=== PATIENT | female | born 1945 | race Hispanic/Latino ===

== ENCOUNTER 2019-01-18 12:12 | Emergency (ER) | payer MEDICARE ==
[2019-01-18] MEDS ORDERED: OCTYL 2-CYANOACRYLATE 1 EACH TP ONE (12:40)
== END 2019-01-18 13:48 | disposition home or self-care (01) ==
LOC: EDH 12:12
DX: S61.012A Laceration without foreign body of left thumb without damage to nail, initial encounter (principal); I10 Essential (primary) hypertension; Z90.49 Acquired absence of other specified parts of digestive tract; Z90.710 Acquired absence of both cervix and uterus; W26.0XXA Contact with knife, initial encounter; Y93.89 Activity, other specified; Y92.098 Other place in other non-institutional residence as the place of occurrence of the external cause; Y99.8 Other external cause status
CPT/HCPCS: 12001

== ENCOUNTER 2022-01-03 07:08 | Observation (INO) | payer MEDICARE ==
[2021-12-30 14:43] LABS: BASOPHILS % (AUTO) 0.6 % (0.0-5.0); EOSINOPHILS % (AUTO) 1.7 % (0.0-8.0); HEMATOCRIT 44.2 % (36-48); LYMPHOCYTES % (AUTO) 29.4 % (21.0-51.0); MEAN CORPUSCULAR HEMOGLOBIN 30.9 pg (27.0-33.0); MEAN CORPUSCULAR HGB CONC 34.6 g/dL (32.0-36.0); MEAN CORPUSCULAR VOLUME 89.3 fL (79-99); NEUTROPHILS % (AUTO) 60.9 % (40.0-77.0); PLATELET COUNT (AUTO) 302 K/uL (130-400); RED BLOOD CELL COUNT(AUTO) 4.95 MIL/uL (4.00-5.50); WHITE BLOOD COUNT (AUTO) 10.1 K/uL (4.8-10.8)
[2021-12-30 14:57] LABS: CREATININE 0.6 mg/dL (0.5-1.5); INR 0.93 (0.85-1.15); POTASSIUM 3.5 mmol/L (3.5-5.1); PROTHROMBIN TIME 9.8 SEC (9.6-11.6)
[2021-12-30 14:59] LABS: PARTIAL THROMBOPLASTIN TIME 28.1 SEC (26.3-35.5)
[2022-01-02 12:23] VITALS: BP 140/100
[2022-01-03] VITALS (24 sets, daily range): BP systolic 125–195; BP diastolic 61–99
[~2022-01-03] VITALS: Ht 152.4 cm; Wt 77.1 kg
[~2022-01-03 07:08] MED LIST: AMLO2.5T4 PO; LOSA100T58 PO
[2022-01-03] MEDS: LACTATED RINGERS 1000ML 1,000 ML IV SCH ×2 (07:48→16:45)
[2022-01-03] MEDS ORDERED: CEFAZOLIN SODIUM 1 GM VIAL IVP ONE (08:00)
[2022-01-03] MEDS ORDERED: TRANEXAMIC ACID 1000MG/10ML ONE (08:55)
[2022-01-03] MEDS ORDERED: ROPIVACAINE 0.5% 5MG/ML 30ML IJ ONE (10:06)
[2022-01-03] MEDS ORDERED: PROPOFOL 10 MG/ML 20ML VIAL IV ONE (10:56)
[2022-01-03] MEDS ORDERED: LIDOCAINE PF 100MG/5ML (2%) SYRINGE 5ML ONE (11:00)
[2022-01-03] MEDS ORDERED: NEOSTIGMINE 5MG/5ML SYR IV ONE (11:00)
[2022-01-03] MEDS ORDERED: ONDANSETRON 4MG INJ ONE (11:00)
[2022-01-03] MEDS ORDERED: FENTANYL CITRATE PF 50 MCG/1 ML 2ML VIAL ONE (11:01)
[2022-01-03] MEDS ORDERED: ROCURONIUM 10MG/1ML SYR 10 MG/ML ML ONE (11:01)
[2022-01-03] MEDS ORDERED: MIDAZOLAM HCL 1 MG/ML 2ML VIAL ONE (11:02)
[2022-01-03] MEDS ORDERED: GLYCOPYRROLATE 1 MG/5 ML SYRINGE ONE (11:06)
[2022-01-03] MEDS ORDERED: CEFAZOLIN SODIUM 2 GM VIAL IV ONE (12:02)
[2022-01-03] MEDS ORDERED: DEXAMETHASONE SOD PHOSPHATE 10MG/ML 1ML VIAL ONE (12:07)
[2022-01-03] MEDS: ACETAMINOPHEN 500 MG TABLET PO SCH ×2 (14:00→21:37)
[2022-01-03] MEDS ORDERED: HYDROCODONE/ACETAMINOPHEN 10/325 MG TAB PO PRN (14:00)
[2022-01-03] MEDS ORDERED: ONDANSETRON 4MG INJ IVP PRN (14:00)
[2022-01-03] MEDS ORDERED: KETOROLAC 15MG/ML VIAL (15MG/ML) IV PRN (14:00)
[2022-01-03] MEDS ORDERED: FERROUS FUMARATE 324 MG TABLET PO PRN (14:00)
[2022-01-03] MEDS ORDERED: MORPHINE 4 MG SYG IVP PRN (14:00)
[2022-01-03] MEDS ORDERED: MEPERIDINE-PF 25 MG/ML SYG ONE ×2 (14:13→14:28)
[2022-01-03] MEDS ORDERED: HYDRALAZINE 20MG/ML VIAL ONE (14:21)
[2022-01-03] MEDS: 0.9%NACL 1000ML 1,000 ML IV SCH (16:00)
[2022-01-03] MEDS: CEFAZOLIN SODIUM 1 GM VIAL IVP SCH (18:16)
[2022-01-03] MEDS: TRAMADOL HCL 50 MG TABLET PO SCH (18:16)
[2022-01-03] MEDS: ASPIRIN 81 MG EC TAB PO SCH (21:36)
[2022-01-03] MEDS: FAMOTIDINE 20MG TAB PO SCH (21:36)
[2022-01-04] VITALS (7 sets, daily range): BP systolic 115–167; BP diastolic 66–85
[2022-01-04] MEDS: TRAMADOL HCL 50 MG TABLET PO SCH ×5 (00:45→23:56)
[2022-01-04] MEDS: CEFAZOLIN SODIUM 1 GM VIAL IVP SCH (03:55)
[2022-01-04 05:16] LABS: HEMATOCRIT 39.9 % (36-48); MEAN CORPUSCULAR HEMOGLOBIN 30.9 pg (27.0-33.0); MEAN CORPUSCULAR HGB CONC 35.1 g/dL (32.0-36.0); MEAN CORPUSCULAR VOLUME 88.1 fL (79-99); RED BLOOD CELL COUNT(AUTO) 4.53 MIL/uL (4.00-5.50); RED CELL DISTRIBUTION WIDTH 11.9 % (11.0-15.5); WHITE BLOOD COUNT (AUTO) 18.1 K/uL (4.8-10.8)
[2022-01-04 05:29] LABS: CREATININE 0.7 mg/dL (0.5-1.5); POTASSIUM 3.5 mmol/L (3.5-5.1)
[2022-01-04] MEDS: ACETAMINOPHEN 500 MG TABLET PO SCH ×3 (05:58→21:30)
[2022-01-04] MEDS: HYDROCODONE/ACETAMINOPHEN 5/325 MG TAB PO PRN ×2 (08:24→15:08)
[2022-01-04] MEDS: POLYETHYLENE GLYCOL 3350 17 GM POWD.PACK PO SCH (09:49)
[2022-01-04] MEDS: FAMOTIDINE 20MG TAB PO SCH ×2 (09:50→21:30)
[2022-01-04] MEDS: ASPIRIN 81 MG EC TAB PO SCH ×2 (09:50→21:30)
[2022-01-04] MEDS: LOSARTAN 100 MG TABLET PO SCH (09:50)
[2022-01-04] MEDS: AMLODIPINE 2.5 MG TAB PO SCH (09:50)
[2022-01-04] MEDS: 0.9%NACL 1000ML 1,000 ML IV SCH (10:00)
[2022-01-04] MEDS: FERROUS SULFATE 325 MG TABLET.DR PO SCH (21:29)
[2022-01-05 04:22] VITALS: BP 163/104
[2022-01-05] MEDS: TRAMADOL HCL 50 MG TABLET PO SCH ×2 (05:14→12:22)
[2022-01-05] MEDS: ACETAMINOPHEN 500 MG TABLET PO SCH ×2 (05:14→15:00)
[2022-01-05 08:00] VITALS: BP 151/84
[2022-01-05] MEDS: HYDROCODONE/ACETAMINOPHEN 5/325 MG TAB PO PRN (08:09)
[2022-01-05] MEDS: FERROUS SULFATE 325 MG TABLET.DR PO SCH (09:19)
[2022-01-05] MEDS: AMLODIPINE 2.5 MG TAB PO SCH (09:19)
[2022-01-05] MEDS: ASPIRIN 81 MG EC TAB PO SCH (09:19)
[2022-01-05] MEDS: POLYETHYLENE GLYCOL 3350 17 GM POWD.PACK PO SCH (09:19)
[2022-01-05] MEDS: FAMOTIDINE 20MG TAB PO SCH (09:19)
[2022-01-05] MEDS: LOSARTAN 100 MG TABLET PO SCH (09:19)
[2022-01-05 11:30] VITALS: BP 143/73
[2022-01-05 16:30] VITALS: BP 101/47
[2022-01-06] MEDS ORDERED: BISACODYL 10 MG SUPP.RECT RC PRN (14:00)
== END 2022-01-05 17:30 ==
LOC: DAH 07:08 → DAHIP 07:09 → 4DH 14:54
PROVIDERS: ADMIT Orthopaedic Surgery; ATTEND Orthopaedic Surgery
DX: M17.11 Unilateral primary osteoarthritis, right knee (principal); Z20.822 Contact with and (suspected) exposure to COVID-19; I10 Essential (primary) hypertension; M25.561 Pain in right knee; Z68.33 Body mass index [BMI] 33.0-33.9, adult; Z79.899 Other long term (current) drug therapy; Z98.890 Other specified postprocedural states; Z79.82 Long term (current) use of aspirin
CPT/HCPCS: 80048 ×2; 85025; 85610; 85730; 87426; 36415 ×2; 93005; 27447; 96374; 82948; 97161; 97039 ×5; 96376; 85027; 97116 ×4; 97530 ×3; 87635; A6260; G0378 ×48; A4663; J7030; A4649 ×4; C1776; A4600; J0690 ×4; J7120; J3010; J3490 ×2; J1100; J2710; J2001; J0360; J2250; J2704; J2405; J2175 ×2; J2795; G0168; A4930; A6255; A6254; A5120; A4215; A4223; A4222; A4221

== ENCOUNTER → 2023-12-13 | Outpatient (CLI) | payer MEDICARE ==
[~2023-12-13] MED LIST changes: -LOSA100T58 PO; +LOSA100T59 PO
[2023-12-13 11:41] LABS: BASOPHILS # (AUTO) 0.04 K/uL (0.00-0.20); BASOPHILS % (AUTO) 0.3 % (0.0-5.0); EOSINOPHILS # (AUTO) 0.34 K/uL (0.00-0.70); EOSINOPHILS % (AUTO) 2.6 % (0.0-8.0); HEMATOCRIT 42.3 % (36-48); IMMATURE GRANULOCYTE ABSOLUTE 0.09 K/uL (0-1); LYMPHOCYTES # (AUTO) 2.4 K/uL (1.0-4.8); LYMPHOCYTES % (AUTO) 17.9 % (21.0-51.0); MEAN CORPUSCULAR HEMOGLOBIN 30.7 pg (27.0-33.0); MEAN CORPUSCULAR HGB CONC 33.6 g/dL (32.0-36.0); MEAN CORPUSCULAR VOLUME 91.6 fL (79-99); MONOCYTES # (AUTO) 0.9 K/uL (0.1-1.0); MONOCYTES % (AUTO) 6.6 % (3.0-13.0); NEUTROPHILS # (AUTO) 9.4 K/uL (1.8-7.7); NEUTROPHILS % (AUTO) 71.9 % (40.0-77.0); PLATELET COUNT (AUTO) 316 K/uL (130-400); RED BLOOD CELL COUNT(AUTO) 4.62 MIL/uL (4.00-5.50); RED CELL DISTRIBUTION WIDTH 12.2 % (11.0-15.5); WHITE BLOOD COUNT (AUTO) 13.1 K/uL (4.8-10.8)
[2023-12-13 11:52] LABS: ALBUMIN 3.7 g/dL (3.5-5.0); BILIRUBIN,TOTAL 0.9 mg/dL (0.2-1.0); CREATININE 0.7 mg/dL (0.5-1.0); POTASSIUM 3.5 mmol/L (3.5-5.1); TOTAL PROTEIN, SERUM 7.6 g/dL (6.0-8.3)
== END | disposition home or self-care (01) ==
LOC: LAB 10:32
PROVIDERS: ATTEND Family Medicine
DX: I11.9 Hypertensive heart disease without heart failure (principal); E55.9 Vitamin D deficiency, unspecified; E78.2 Mixed hyperlipidemia; R73.9 Hyperglycemia, unspecified
CPT/HCPCS: 36415; 80053; 80061; 82306; 83036; 85025

== ENCOUNTER → 2024-04-28 | Outpatient (CLI) | payer MEDICARE ==
[2024-04-28 10:48] LABS: ALBUMIN 3.6 g/dL (3.5-5.0); BILIRUBIN,TOTAL 0.6 mg/dL (0.2-1.0); CREATININE 0.5 mg/dL (0.5-1.0); POTASSIUM 4.1 mmol/L (3.5-5.1); TOTAL PROTEIN, SERUM 7.1 g/dL (6.0-8.3)
[2024-04-28 10:58] LABS: HEMOGLOBIN A1C 6.3 % (4.0-6.0)
== END | disposition home or self-care (01) ==
LOC: LAB 09:32
PROVIDERS: ATTEND Family Medicine
DX: E78.2 Mixed hyperlipidemia (principal); R73.03 Prediabetes
CPT/HCPCS: 36415; 80053; 80061; 83036